=== PATIENT | female | born 1970 ===

== ENCOUNTER 2018-08-23 16:55 | Inpatient (IN) | payer BC, OTHER ==
[2018-08-23 18:18] VITALS: BMI 33.6
[2018-08-23 19:57] LABS: BASO % 0.6 % (0-2.0); EOS % 0.9 % (0-4.5); HEMATOCRIT 38.4 % (32.4-45.2); HEMOGLOBIN 12.7 GM/dL (10.7-15.3); LYMPH % 19.7 % (8-40); MCH 30.3 pg (25.7-33.7); MCHC 32.9 g/dl (32.0-36.0); MEAN CELL VOLUME 91.9 fl (80-96); MONO % 7.1 % (3.8-10.2); NEUT % 71.7 % (42.8-82.8); PLATELET COUNT 316 K/MM3 (134-434); RBC 4.18 M/mm3 (3.60-5.2); RDW 13.6 % (11.6-15.6)
[2018-08-23 20:36] LABS: ACTIVATED PTT 30.3 SECONDS (25.2-36.5)
[2018-08-23] MEDS ORDERED: OXYTOCIN 30 UNITS in 0.9% NS 30 UNIT/500 ML INFUS.BAG IVPB ONE (20:43)
[2018-08-23] MEDS: DEXTROSE 5%-LACTATED RINGERS 1,000 ML IV SCH (20:50)
[2018-08-23] MEDS: OXYTOCIN 30 UNITS in 0.9% NS 30 UNIT/500 ML INFUS.BAG IVPB SCH (21:00)
--- NOTE | 2018-08-23 21:02 | HP ---
Past Medical History - Primary Care Physician PCP:: Roosevelt Carl - Admission Chief Complaint: 47yo P0 with at EGA 40w 0d admitted for labor indx. 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: No: Alzheimer's, CVA, Dementia, Migraine, Multiple Sclerosis, Peripheral Neuropathy, Parkinson's, Seizure, Syncope, TIA, Vertigo, Other Cardiovascular: No: AFIB, Aneurysm, Aortic Insufficiency, Aortic Stenosis, CAD, CHF, Deep Vein Thrombosis, HTN, Hyperlipdemia, MD, Mitral Insufficiency, Mitral Stenosis, Murmur, Pulmonary Hypertension, Other Pulmonary: Yes: Asthma Gastrointestinal: No: Ascites, Cancer, Constipation, Crohn's Disease, Diverticulitis, Diverticulosis, Esophageal Varices, Gastritis, GERD, GI Bleed, Hemorrhoids, Hiatal Hernia, Inflamatory Bowel Disease, Irritable Bowel Disease, Pancreatitis, Peptic Ulcer Disease, Ulcerative Colitis, Other Hepatobiliary: No: Cirrhosis, Cholelithiasis, Cholecystitis, Choledocholithiasis , Hepatitis A, Hepatitis B, Hepatitis C, Other Renal/: No: Renal Failure, Renal Inusuff, BPH, Cancer, Hematuria, Hemodialysis , Neurogenic Bladder, Renal Calculi, UTI, Other ...: 1 ...Para: 0 ...Term: 0 ...: 0 ...Spon : 0 ...Induced : 0 ...Multiple Gestation: 0 ...LMP: 11/16/17 ...EDC by Sono: 08/23/18 Heme/Onc: No: Anemia, B12 Deficiency, Bleeding Disorder, Cancer, Current Chemotherapy, Current Radiation Therapy, Hemochromatosis, Hypercoaguable State, Myeloproliferative Synd, Sickle Cell Disease, Sickle Cell Trait, Thrombocytopenia, Other Infectious Disease: No: AIDS, C-Diff, Herpes Zoster, HIV, MRSA, STD's, Tuberculosis, VREF, Other Psych: No: Addictions, Anxiety, Bipolar, Depression, Panic, Psychosis, Schizophrenia, Other Musculoskeletal: No: Bursitis, Chronic low back pain, Hemiparesis, Hemiplegia, Osteoarthritis, Paraplegia, Other Rheumatology: No: Fibromyalgia, Gout, Lupus, Rheumatoid Arthritis, Sarcoidosis, Vasculitis, Other ENT: No: Allergic Rhinitis, Sinusitis, Other Endocrine: No: Rick's Disease, [place]'s Disease, Diabetes Insipidus, Diabetes Mellitus, Hyperparathyroidism, Hyperthyroidism, Hypothyroidism, Osteopenia, SIADH, Other Dermatology: No: Basal Cell, Cellulitis, Eczema, Melanoma, Psoriasis, Squamous Cell, Other - Past Surgical History Past Surgical History: Yes: None Hx Myomectomy: No Hx Transabdominal Cerclage: No - Smoking History Smoking history: Never smoked Have you smoked in the past 12 months: No - Alcohol/Substance Use Hx Alcohol Use: No History of Substance Use: reports: None - Social History Usual Living Arrangement: Yes: With Spouse ADL: Independent History of Recent Travel: No Home Medications - Allergies Allergies/Adverse Reactions: Allergies Allergy/AdvReac Type Severity Reaction Status Date / Time POLLEN AdvReac Uncoded 08/23/18 18:46 - Home Medications Home Medications: Ambulatory Orders One Daily Tablet 1 tab PO DAILY 08/23/18 Family Disease History - Family Disease History Family Disease History: Respiratory: Father (Asthma) Review of Systems - Review of Systems Constitutional: reports: Other (mild contractions) Eyes: reports: No Symptoms HENT: reports: No Symptoms Neck: reports: No Symptoms Cardiovascular: reports: No Symptoms Respiratory: reports: No Symptoms Gastrointestinal: reports: No Symptoms Genitourinary: reports: No Symptoms Breasts: reports: No Symptoms Reported Musculoskeletal: reports: No Symptoms Integumentary: reports: No Symptoms Neurological: reports: No Symptoms Endocrine: reports: No Symptoms Hematology/Lymphatic: reports: No Symptoms Psychiatric: reports: No Symptoms Pain Intensity: 3 Physical Exam - Maternity Vital Signs: Vital Signs Temperature 98.3 F 08/23/18 19:00 Pulse Rate 86 08/23/18 19:00 Respiratory Rate 18 08/23/18 19:00 Blood Pressure 121/82 08/23/18 19:00 O2 Sat by Pulse Oximetry (%) Constitutional: Yes: Well Nourished, No Distress, Calm Eyes: Yes: WNL, Conjunctiva Clear HENT: Yes: WNL, Atraumatic, Normocephalic Neck: Yes: WNL, Supple, Trachea Midline Cardiovascular: Yes: WNL, Regular Rate and Rhythm Lungs: Clear to auscultation, Normal air movement - Abdominal Exam/OB Fundal Height: 40 Number of Fetuses: Single Presentation: Vertex Contractions: Yes Regularity: Irregular (q4-6min) Intensity: Mild Monitor Mode: External Heart Rate (range): 130 Accelerations: Non-Uniform Decelerations: None - Vaginal Exam/OB Vaginal Bleediing: No Speculum Exam: No Dilatation (cm): 2.5 Effacement (%): 50 Amniotic Membrane Status: Intact Presentation: Vertex/Position Station: -3 (Adequate gynecoid pelvimetry, EFW ~3600gm by Bernabe's) - Physical Exam Musculoskeletal: Yes: WNL Extremities: Yes: WNL Edema: No Edema: LLE: Trace, RLE: Trace Integumentary: Yes: WNL Deep Tendon Reflex Grade: Normal +2 ...Motor Strength: WNL Psychiatric: Yes: WNL, Alert, Oriented - Labs Lab Results: CBC, BMP 08/23/18 19:20 Hemorrhage Risk Assessment - Risk Factors Medium Risk Factors: Yes: None High Risk Factors: Yes: None Risk Score: 1 Risk Level: Medium Risk Imaging - Results Ultrasound: Report Reviewed Assessment/Plan 47yo P0 with at EGA 40w 0d admitted for labor indx. Pt is not in labor. Fetus with Category I tracing. Adequate gynecoid pelvimetry on exam. We had long discussion re: risks, benefits, and alternatives of labor induction. I explained the options of expectant management awaiting spontaneous labor, induction of labor, and elective section. The risks of uterine tachysystole, distress, uterine rupture, need for emergency C/S, hemorrhage, infection, scarring, etc. were discussed. We also discussed the risks of meconium aspiration, shoulder dystocia, and anesthesia options. The pt requested to proceed with induction. We discussed the alternative methods of induction with pitocin.
[2018-08-23 21:05] LABS: URINE APPEARANCE CLEAR; URINE BILIRUBIN NEGATIVE (NEGATIVE); URINE COLOR YELLOW; URINE GLUCOSE (UA) NEGATIVE (NEGATIVE); URINE KETONE NEGATIVE (NEGATIVE); URINE LEUK ESTERASE TRACE (NEGATIVE); URINE NITRITE NEGATIVE (NEGATIVE); URINE PROTEIN NEGATIVE (NEGATIVE)
[2018-08-23 21:14] LABS: INR 0.86 (0.83-1.09); PROTHROMBIN TIME (PATIENT) 10.1 SEC (9.7-13.0)
[2018-08-23 22:16] LABS: EPI CELLS 2 /HPF (0-5/HPF); HYALINE CASTS 2 /lpf (0-8); URINE BACTERIA 91 /hpf (NEGATIVE); URINE RBC 1 /hpf (0-4); URINE WBC 3 /hpf (0-5)
[2018-08-24] MEDS ORDERED: BUTORPHANOL TARTRATE 1 MG/ML VIAL IVPB ONE (09:07)
[2018-08-24] MEDS ORDERED: PROMETHAZINE HCL 25 MG/1 ML VIAL IVPB ONE (09:07)
--- NOTE | 2018-08-24 09:07 | PN ---
Ante-Partal Exam - Subjective Subjective: Feels contractions and tired. No other complaints Vital Signs: Vital Signs Temperature 98.1 F 08/24/18 08:00 Pulse Rate 77 08/24/18 08:00 Respiratory Rate 18 08/24/18 08:00 Blood Pressure 125/84 08/24/18 08:00 O2 Sat by Pulse Oximetry (%) Bleeding: No Headache: No Visual changes: No Right upper quadrant pain: No Pain (scale 1-10): 6 - Contractions Contractions: Yes Regularity: Irregular (q4-5min) Intensity: Moderate Monitor Mode: External - Exam during Labor Heart Rate: 125 Variability: Moderate Heart Rate Location: Midline Category: I Monitor Accelerations: Present Monitor Decelerations: None Exam: Vaginal Dilatation (cm): 3 Effacement (%): 80 Amniotic Membrane Status: Intact Presentation: Vertex Station: -3 - Intrapartum Hemorrhage Risk Medium Risk Factors: None High Risk Factors: None Risk Score: 0 Risk Level: Low Risk - Assessment/Plan Assessment/Plan: 47yo with induced labor at 40w1d. Fetus with Category I tracing. Continue indx. Pt requested IV pain/sedation meds.
[2018-08-24] MEDS ORDERED: BUTORPHANOL TARTRATE 2 MG/ML VIAL ONE (09:14)
[2018-08-24] MEDS ORDERED: PROMETHAZINE HCL 25 MG/1 ML VIAL ONE (09:14)
[2018-08-24 09:30] LABS: CALCIUM 8.8 mg/dL (8.5-10.1); CREATININE 0.7 mg/dL (0.55-1.3)
[2018-08-24] MEDS: DEXTROSE 5%-LACTATED RINGERS 1,000 ML IV SCH (14:27)
[2018-08-24] MEDS ORDERED: FENTANYL/BUPIVACAINE/NS/PF - PCEA - 50 ML DISP.SYRIN EP ONE ×3 (14:51→23:51)
[2018-08-24] MEDS: FENTANYL/BUPIVACAINE/NS/PF - PCEA - 50 ML DISP.SYRIN EP SCH (15:30)
[2018-08-24] MEDS ORDERED: NALOXONE HCL 0.4 MG/ML VIAL IVPUSH PRN (15:48)
[2018-08-24] MEDS ORDERED: ELECTROLYTE-148 SOLN 500 ML IV ONE (16:43)
--- NOTE | 2018-08-24 16:43 | PN ---
Ante-Partal Exam - Subjective Subjective: Patient comfortable s/p epidural Vital Signs: Vital Signs Temperature 98.4 F 08/24/18 14:17 Pulse Rate 95 H 08/24/18 16:09 Respiratory Rate 20 08/24/18 16:09 Blood Pressure 124/66 08/24/18 16:09 O2 Sat by Pulse Oximetry (%) 94 L 08/24/18 16:09 Bleeding: No Headache: No Visual changes: No Right upper quadrant pain: No - Contractions Contractions: Yes Regularity: Regular Intensity: Unaware - Exam during Labor Heart Rate: 13 Variability: Moderate Category: I Monitor Accelerations: Present Monitor Decelerations: None Exam: Vaginal Dilatation (cm): 4 Effacement (%): 90 Amniotic Membrane Status: Ruptured Amniotic Fluid: Clear Presentation: Vertex Station: -2 - Intrapartum Hemorrhage Risk Medium Risk Factors: None High Risk Factors: None Risk Score: 0 Risk Level: Low Risk - Assessment/Plan Assessment/Plan: 47 yo induction of labor 1. unchanged exam Pitocin at 10 2. GBS neg 3. Pain well controlled with epidural 4. Will proceed with expectant management
[2018-08-24] MEDS ORDERED: ELECTROLYTE-148 SOLN 1,000 ML IV SCH (16:45)
--- NOTE | 2018-08-24 21:20 | PN ---
Ante-Partal Exam - Subjective Subjective: Patient reports pain with contractions Vital Signs: Vital Signs Temperature 99.0 F 08/24/18 20:00 Pulse Rate 75 08/24/18 18:30 Respiratory Rate 20 08/24/18 18:30 Blood Pressure 136/79 08/24/18 18:30 O2 Sat by Pulse Oximetry (%) 92 L 08/24/18 18:30 Bleeding: No Headache: No Visual changes: No Right upper quadrant pain: No - Contractions Contractions: Yes Regularity: Regular Monitor Mode: External - Exam during Labor Heart Rate: 150 Category: I Monitor Accelerations: Present Monitor Decelerations: None Exam: Vaginal Dilatation (cm): 8 Effacement (%): 90 Amniotic Membrane Status: Ruptured Presentation: Vertex Station: -1 - Intrapartum Hemorrhage Risk Medium Risk Factors: None High Risk Factors: None Risk Score: 0 Risk Level: Low Risk - Assessment/Plan Assessment/Plan: 47 yo active labor 1. Pitocin at 14 Will continue 2. GBS negative 3. Category I FHT 4. Will proceed with expectant management
[2018-08-24] MEDS ORDERED: BUPIVACAINE HCL/PF 0.25% (2.5MG/ML) 10 ML VIAL ONE (23:40)
[2018-08-25] MEDS ORDERED: OXYTOCIN 20 UNITS in 0.9% NS 20 UNIT/1,000 ML INFUS.BAG IV ONE ×2 (01:52→04:57)
[2018-08-25] MEDS ORDERED: LIDOCAINE HCL 1% PRESERVATIVE FREE - 30ML VIAL ONE (01:52)
[2018-08-25] MEDS ORDERED: GENTAMICIN SO4 80 MG/2 ML VIAL ONE (03:21)
[2018-08-25] MEDS ORDERED: AMPICILLIN SODIUM 2 GM VIAL ONE (03:22)
[2018-08-25] MEDS ORDERED: AMPICILLIN - 2 GM in SODIUM CHLORIDE 100 ML IVPB ONE (03:50)
--- NOTE | 2018-08-25 03:50 | PN ---
Progress Note (short form) - Note Progress Note: Patient pushing with contractions Selected Entries 08/24/18 08/25/18 08/25/18 23:59 01:00 01:15 Temperature 100.5 F H 100.7 F H Pulse Rate 92 H 115 H Blood Pressure 128/84 151/85 08/25/18 02:00 Temperature 99.7 F H Pulse Rate Blood Pressure FHT 160-170s + recurrent variable decelerations SVE: FD, +1 station Two temperature elevations and tachycardia, likely chorioamnionitis. Will start Amp/Gent Discussed current FHT, had late decelerations which improved with change in maternal position FH persistently elevated now with recurrent variable decelerations Patient is currently pushing but remote from delivery Given chorioamnionitis, nonreassuring tracing, recommend delivery Discussed risks including but not limited to infection, bleeding requiring transfusion and damage to surrounding organs such as the bowel or bladder. Discussed risk of injury to . Discussed risk of wound infection and separation. Discussed need for planning of future children and possibility of abnormal placentation. All questions answered. Patient expressed understanding. Written consent obtained. Nursing and OR staff notified. Will proceed to OR
[2018-08-25] MEDS ORDERED: LIDO 2%/EPI 1:200000 PRESRVFRE (20 ML SDVIAL) ONE (03:51)
--- NOTE | 2018-08-25 05:12 | PN ---
"Delivery - Delivery Section: Primary Type of Anesthesia: Epidural EBL (cc): 500 Delivery, Single - Condition of Infant Director Of Gift Planning/Lead Qa Analyst Present: Yes Name: Ayden Mars Infant Gender: Male Weight: 7 lb 11 oz Position: Right, OT - 1 Minute Total Score: 8 5 Minutes Total Score: 9 - Feeding Plan Initial Plan: Exclusive throughout hospitalization Remarks - Remarks Remarks: Surgeon: MD Harman | Assist: TRICIA Mays | Anesthesia: MD Guanakito EBL: 500 | UOP: 100 | IVF: 2000 Findings: Male infant, ROT position, 8,9; wt 7lb 11 oz; thick meconium, nuchal cord x 2; body cord x 1; normal tubes and ovaries bilaterally Dictation: [id number]"
[2018-08-25 05:13] LABS: VENOUS PC02 46.5 mmHg (41-51); VENOUS PH 7.28 (7.31-7.41)
[2018-08-25] MEDS ORDERED: IBUPROFEN 600 MG TABLET (FP) PO PRN (05:13)
[2018-08-25] MEDS ORDERED: METHYLERGONOVINE MALEATE 0.2 MG/1 ML AMP IM PRN (05:13)
[2018-08-25] MEDS ORDERED: SENNOSIDES/DOCUSATE COMBO (SENNA PLUS) TABLET (UD) PO PRN (05:13)
[2018-08-25] MEDS ORDERED: oxyCODONE HCL 5 MG TABLET PO PRN ×2 (05:13)
[2018-08-25] MEDS ORDERED: OXYTOCIN 20 UNITS in 0.9% NS 20 UNIT/1,000 ML INFUS.BAG IV SCH (05:15)
[2018-08-25 05:16] LABS: VENOUS PO2 22.3 mmHg (30-40)
--- NOTE | 2018-08-25 06:23 | OP ---
DATE OF OPERATION: 08/25/2018 ATTENDING PHYSICIAN RESPONSIBLE TO SIGN REPORT: Rani Hammer MD PREOPERATIVE DIAGNOSIS: Intrauterine at 40+ weeks, chorioamnionitis, nonreassuring tracing. POSTOPERATIVE DIAGNOSIS: Intrauterine at 40+ weeks, chorioamnionitis, nonreassuring tracing. SURGEON: Rani Hammer MD CENTRIFUGAL STATION OPERATOR: Yusuf , TRICIA ANESTHESIOLOGIST: Mario Calabrese MD ESTIMATED BLOOD LOSS: 500. URINE OUTPUT: 100. INTRAVENOUS FLUIDS: 2000 FINDINGS: Male , ROT position; Apgars 8 and 9; weight 7 pounds, 11 ounces, thick meconium, nuchal cord x2, body cord x1, normal tubes and ovaries bilaterally. INDICATIONS: Patient is a 47-year-old 1, para 0, with a history for induction who presented for induction of labor, found to be progressed to fully dilated, pushing, noted to have chorioamnionitis, started on ampicillin, gentamicin, and clindamycin. She was noted to have nonreassuring tracing. She was counseled regarding expected management of her surgery, risks of surgery, risks of including infection, bleeding, damage to surrounding organs such as bowel, bladder, injury to infant, risk of abnormal presentation with future pregnancies, and she expressed understanding and was brought to the operating room. DESCRIPTION OF PROCEDURE: When anesthesia was found to be adequate, patient was prepped and draped in a normal sterile fashion, placed in dorsal supine position with a leftward tilt. An approximately 11-cm skin incision was made with the knife and carried down to underlying rectus muscles using Bovie electrocautery. The fascia was nicked in the midline, extended laterally using the Saab scissors. Inferior portion of the fascial incision was tented up using Lizeth clamps and dissected off the underlying rectus muscles using the Saab scissors. Attention was brought to the superior portion, where in similar fashion, it was tented up using Lizeth clamps, and dissected off the underlying rectus muscles using the Saab scissors. The rectus muscles were found to be in mild diastasis, and the peritoneum was entered sharply using Metzenbaum scissors. The vesicouterine peritoneum was identified, entered sharply. Bladder flap was created digitally. Hysterotomy was performed. Thick meconium was noted. Hysterotomy incision was extended superior laterally using bandaged scissors. Infants head was found to be ROT position. Infants head was brought to hysterotomy site. The head was delivered followed by shoulders and body without issue. Nuchal cord noted x2 and reduced. Body cord noted and reduced. Cord was cut and clamped. Cord blood and cord gases were collected and sent. Infant was handed to waiting NICU staff present for delivery. The placenta was manually extracted. The uterus was cleared of all clot and debris. The uterus was closed using 0 Biosyn in a running layer, 2nd layer was an imbricated layer. The vesicouterine peritoneum was reapproximated in a running fashion. Gutters were cleared of all clot and debris. Bilateral ovaries and tubes were noted to be normal appearing. The peritoneum was closed using 2-0 Biosyn in a running fashion. The rectus muscles were closed by reapproximating using 0 Biosyn in an interrupted fashion, the fascia was closed using 0 Vicryl in a running fashion, subcutaneous fat was closed using 0 Vicryl in a running fashion, and the skin was reapproximated using 3-0 Vicryl. Patient tolerated the procedure well. Estimated blood loss was 500 mL. Patient was brought to the recovery room in stable condition. Yanna [id number]
[2018-08-25] MEDS: CLINDAMYCIN 600MG PREMIX IVPB 600 MG/50 ML BAG IVPB SCH ×4 (07:08→20:56)
[2018-08-25] MEDS: OXYTOCIN 30 UNITS in 0.9% NS 30 UNIT/500 ML INFUS.BAG IVPB SCH (07:24)
[2018-08-25] MEDS ORDERED: IBUPROFEN 800 MG/8 ML IJ IVPB ONE (07:36)
[2018-08-25] MEDS: IBUPROFEN 800 MG/8 ML IJ IVPB PRN (07:45)
[2018-08-25] MEDS ORDERED: SODIUM CHLORIDE 100 ML IVPB ONE ×5 (09:15→23:53)
[2018-08-25] MEDS ORDERED: AMPICILLIN SODIUM 1 GM VIAL ONE ×5 (09:15→23:53)
[2018-08-25] MEDS: AMPICILLIN - 1 GM in SODIUM CHLORIDE 100 ML IVPB SCH ×4 (09:20→19:52)
[2018-08-25] MEDS: DEXTROSE 5% IVPB SCH (10:35)
[2018-08-25] MEDS: WATER IVPB SCH (10:35)
[2018-08-25] MEDS: GENTAMICIN IVPB SCH (10:35)
[2018-08-25] MEDS ORDERED: TUBERCULIN PPD 5 TU/0.1ML SYRINGE (IN PATIENT USE ONLY) ID ONE (13:10)
[2018-08-26] MEDS: IBUPROFEN 800 MG/8 ML IJ IVPB PRN (00:33)
[2018-08-26] MEDS: CLINDAMYCIN 600MG PREMIX IVPB 600 MG/50 ML BAG IVPB SCH ×4 (03:25→21:53)
[2018-08-26] MEDS ORDERED: AMPICILLIN SODIUM 1 GM VIAL ONE ×6 (04:08→23:37)
[2018-08-26] MEDS ORDERED: SODIUM CHLORIDE 100 ML IVPB ONE ×6 (04:08→23:37)
[2018-08-26] MEDS: AMPICILLIN - 1 GM in SODIUM CHLORIDE 100 ML IVPB SCH ×7 (04:16→23:55)
[2018-08-26] MEDS ORDERED: BISACODYL 10 MG SUPP.RECT RC PRN (05:13)
--- NOTE | 2018-08-26 08:19 | PN ---
Progress Note (short form) - Note Progress Note: pod 1 s/p c/s CBC, BMP 08/23/18 09:00 Last Vital Signs Temp Pulse Resp BP Pulse Ox 97.8 F 76 18 106/50 L 96 08/26/18 06:00 08/26/18 06:00 08/26/18 06:00 08/26/18 06:00 08/25/18 06:30 abdomen soft, nodistension, no cva incision dry, clean no calf tenderness no excess vaginal bleeding plan cbc, ambulate advance diet
--- NOTE | 2018-08-26 08:28 | PN ---
Progress Note (short form) - Note Progress Note: Post op day#1.S/P C Section under spinal anesthesia with duramorph uneventful.Patient stable and has little pain for which she in on medication.No any anesthesia related problem.Patient Dc from the anesthesia care.
[2018-08-26 08:31] LABS: BASO % 0.3 % (0-2.0); EOS % 1.1 % (0-4.5); HEMATOCRIT 32.3 % (32.4-45.2); HEMOGLOBIN 10.5 GM/dL (10.7-15.3); LYMPH % 8.8 % (8-40); MCH 30.2 pg (25.7-33.7); MCHC 32.6 g/dl (32.0-36.0); MEAN CELL VOLUME 92.7 fl (80-96); MEAN PLT VOLUME 8.8 fl (7.5-11.1); MONO % 4.3 % (3.8-10.2); NEUT % 85.5 % (42.8-82.8); PLATELET COUNT 262 K/MM3 (134-434); RBC 3.48 M/mm3 (3.60-5.2); RDW 13.9 % (11.6-15.6); WHITE BLOOD COUNT 13.3 K/mm3 (4.0-10.0)
[2018-08-26] MEDS ORDERED: PNEUMOC 13-VAL CONJ-DIP CRM/PF 0.5 ML DISP.SYRIN IM ONE (10:00)
[2018-08-26] MEDS ORDERED: PNEUMOCOCCAL 23 VACCINE 0.5 ML VIAL IM ONE (10:00)
[2018-08-26] MEDS: WATER IVPB SCH (10:01)
[2018-08-26] MEDS: DEXTROSE 5% IVPB SCH (10:01)
[2018-08-26] MEDS: GENTAMICIN IVPB SCH (10:01)
[2018-08-26] MEDS: ENOXAPARIN NA (PORCINE) 40 MG/0.4 ML DISP.SYRIN SQ SCH (10:01)
[2018-08-26] MEDS: IBUPROFEN 600 MG TABLET (FP) PO PRN ×3 (10:15→21:57)
[2018-08-26] MEDS: ACETAMINOPHEN 325 MG TABLET (FP) PO PRN ×3 (10:16→21:56)
[2018-08-26] MEDS: SIMETHICONE 80 MG TAB.CHEW (FP) PO PRN ×2 (10:17→21:59)
[2018-08-27] MEDS ORDERED: SODIUM CHLORIDE 100 ML IVPB ONE ×2 (03:31→07:47)
[2018-08-27] MEDS ORDERED: AMPICILLIN SODIUM 1 GM VIAL ONE ×2 (03:31→07:48)
[2018-08-27] MEDS: CLINDAMYCIN 600MG PREMIX IVPB 600 MG/50 ML BAG IVPB SCH ×2 (03:33→09:39)
[2018-08-27] MEDS: AMPICILLIN - 1 GM in SODIUM CHLORIDE 100 ML IVPB SCH ×3 (04:12→12:39)
[2018-08-27 07:47] LABS: BASO % 0.3 % (0-2.0); EOS % 1.8 % (0-4.5); HEMATOCRIT 29.4 % (32.4-45.2); HEMOGLOBIN 9.9 GM/dL (10.7-15.3); LYMPH % 12.7 % (8-40); MCH 30.7 pg (25.7-33.7); MCHC 33.5 g/dl (32.0-36.0); MEAN CELL VOLUME 91.6 fl (80-96); MEAN PLT VOLUME 8.8 fl (7.5-11.1); MONO % 5.4 % (3.8-10.2); NEUT % 79.8 % (42.8-82.8); PLATELET COUNT 272 K/MM3 (134-434); RBC 3.21 M/mm3 (3.60-5.2); RDW 13.6 % (11.6-15.6); WHITE BLOOD COUNT 8.5 K/mm3 (4.0-10.0)
--- NOTE | 2018-08-27 08:52 | PN ---
Progress Note (short form) - Note Progress Note: pod 2, doing well, ambulating, afebrile, passing gas CBC, BMP 08/27/18 06:50 08/23/18 09:00 Last Vital Signs Temp Pulse Resp BP Pulse Ox 98 F 83 18 119/63 96 08/26/18 22:00 08/26/18 22:00 08/26/18 22:00 08/26/18 22:00 08/25/18 06:30 abdomen soft, no distension, no cva incision dry, clean no calf tenderness impression POD 2 ,afebrile, WBC normal plan d/c iv antibiotics ambulate pain management
[2018-08-27] MEDS: ENOXAPARIN NA (PORCINE) 40 MG/0.4 ML DISP.SYRIN SQ SCH (09:34)
[2018-08-27] MEDS: ACETAMINOPHEN 325 MG TABLET (FP) PO PRN ×3 (09:35→21:05)
[2018-08-27] MEDS: IBUPROFEN 600 MG TABLET (FP) PO PRN ×3 (09:35→21:05)
[2018-08-27] MEDS: SIMETHICONE 80 MG TAB.CHEW (FP) PO PRN ×3 (09:36→21:05)
[2018-08-27] MEDS: WATER IVPB SCH (11:15)
[2018-08-27] MEDS: GENTAMICIN IVPB SCH (11:15)
[2018-08-27] MEDS: DEXTROSE 5% IVPB SCH (11:15)
[2018-08-28 06:57] LABS: BASO % 0.3 % (0-2.0); EOS % 1.9 % (0-4.5); HEMATOCRIT 32.3 % (32.4-45.2); HEMOGLOBIN 10.5 GM/dL (10.7-15.3); LYMPH % 17.3 % (8-40); MCHC 32.5 g/dl (32.0-36.0); MEAN CELL VOLUME 92.4 fl (80-96); MEAN PLT VOLUME 8.8 fl (7.5-11.1); MONO % 5.8 % (3.8-10.2); NEUT % 74.7 % (42.8-82.8); PLATELET COUNT 331 K/MM3 (134-434); RDW 13.8 % (11.6-15.6); WHITE BLOOD COUNT 7.2 K/mm3 (4.0-10.0)
[2018-08-28] MEDS: FENTANYL/BUPIVACAINE/NS/PF - PCEA - 50 ML DISP.SYRIN EP SCH ×2 (07:23→07:24)
[2018-08-28] MEDS: ENOXAPARIN NA (PORCINE) 40 MG/0.4 ML DISP.SYRIN SQ SCH (09:35)
[2018-08-28 10:25] VITALS: BP 142/83; PULSE 83; TEMP 98.1
--- NOTE | 2018-08-29 16:56 | PATH ---
Surgical Pathology Report Patient Name: MARCO ANTONIO CODY [facility]. Rec. 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 Specimen(s) Received PLACENTA Clinical History , 40.2 weeks' gestation Final Diagnosis PLACENTA: THIRD TRIMESTER PLACENTA WITH ACUTE CHORIOAMNIONITIS. TRIVASCULAR CORD. Electronically Signed Thelma Duncan M.D. Gross Description The specimen is received fresh labeled placenta and is a 322 gram, 18.5 x 15.5 x 1.8 cm. placenta with attached membranes and umbilical cord. The attached membranes are meier green, meconium stained, translucent with focal opacities and insert marginally. The umbilical cord measures 18 cm. in length and averages 1.2 cm. in diameter. The cord displays velamentous insertion. No true knots or strictures are identified. Cut surface of the umbilical cord reveals 3 vessels. The surface is jaffe-blue with minimal fibrin deposition and appropriate caliber vessels. The maternal surface is red-brown with focal defects. Sectioning reveals red-brown, spongy parenchyma. No lesions are identified. Casting And Pasting Supervisor sections are submitted in three cassettes as follows: 1- membrane rolls and umbilical cord; 2-3- full thickness sections of placenta. /08/26/2018 [facility]08/26/2018
== END 2018-08-28 12:00 | disposition home or self-care (01) | DRG 786 ==
LOC: JLDR 16:55 → J3W 08-25 08:29
PROVIDERS: ADMIT Obstetrics & Gynecology; ATTEND Obstetrics & Gynecology
PROC: 10D00Z1 Extraction of Products of Conception, Low, Open Approach (ICD-10-PCS; principal; 2018-08-25)
DX: O48.0 Post-term pregnancy (principal); O41.1230 Chorioamnionitis, third trimester, not applicable or unspecified; O76 Abnormality in fetal heart rate and rhythm complicating labor and delivery; O69.81X0 Labor and delivery complicated by cord around neck, without compression, not applicable or unspecified; O77.0 Labor and delivery complicated by meconium in amniotic fluid; Z3A.40 40 weeks gestation of pregnancy; Z37.0 Single live birth
CPT/HCPCS: 36415; 36600; 80048; 81003; 82803; 85025; 85610; 85730; 86593; 86850; 86900; 86901; 88307-TC